=== PATIENT | female | born 1985 | race Hispanic/Latino ===

== ENCOUNTER 2016-11-30 21:20 | Emergency (ER) | payer OTHER ==
[~2016-11-30] VITALS: Ht 160 cm; Wt 113.4 kg
[~2016-11-30 21:20] MED LIST: AUGMENTIN 875 M1 TAB PO; IBUPROFEN800 MG PO
[2016-11-30 21:22] VITALS: BP 129/83
[2016-11-30] MEDS ORDERED: AZITHROMYCIN250 M1 PO (22:07)
--- NOTE | 2016-11-30 22:07 | ED EAR COMPLAINT ---
History of Present Illness General Chief Complaint: Upper Respiratory Sx/Fever Stated Complaint: EARS AND THROAT HURT Source: patient Exam Limitations: no limitations Allergies Coded Allergies: MDX - Acetaminophen (From VICODIN) (GI UPSET 08/30/15) MDX - Diazepam (From VALIUM) (GI UPSET, "BUGS CRAWLING ON ME" 08/30/15) MDX - Hydrocodone (From VICODIN) (GI UPSET 08/30/15) Triage Note: PT TO TRIAGE WITH C/O BILAT EAR INFECTION AND SORE THROAT FOR FEW MONTHS. PT HAS BEEN ON ANTIBIOTICS BUT INFECTION CAME BACK. PT AFEBRILE. VSS. STREP SWABS OBTAINED IN TRIAGE AND SENT TO LAB. Triage Nurses Notes Reviewed? yes : No Patient currently breastfeeds: No HPI: This patient is a 31-year-old female who presented to the emergency department today for evaluation of right sided ear pain and throat pain 2 days. The patient reported that she has had recurrent ear infections and sore throats over the last 2 months. She has been on antibiotics which have helped in the past. Reported that currently her pain is a 10 out of 10. The pain is nonradiating and constant. The throat pain is worse with swallowing. No provoking or palliative factors to the ear pain. The patient denied any fevers or chills. No difficulty breathing or chest pain. (ZACH MITCHELL,SARAY) Vital Signs & Intake/Output Vital Signs & Intake/Output Vital Signs Date Time Temp Pulse Resp B/P Pulse O2 O2 Flow FiO2 Ox Delivery Rate 11/30 2121 96.3 102 18 129/83 97 Room Air ED Intake and Output 12/01 0000 11/30 1200 Intake Total Output Total Balance Patient 250 lb Weight Reconcile Medications AMOXICILLIN/POTASSIUM CLAV (Augmentin 875-125 Tablet) 875 MG/125 MG TAB 1 TAB PO BID BILATERAL EAR INFECTION Azithromycin 250 MG TABLET 1 DP PO AD OTITIS MEDIA AND PHARYNGITIS 2 the first day followed by 1 for days 2-5 Ibuprofen 800 MG TAB 1 TAB PO TID PRN PAIN/FEVER (SALONI MEIER,KWASI Bello) Past History Travel History Traveled to [place] past 21 day No Medical History Any Pertinent Medical History? see below for history EENT: otitis media Respiratory: asthma Surgical History Surgical History: non-contributory Psychosocial History What is your primary language [place]ese Tobacco Use: Current Daily Use Daily Tobacco Use Amount/Type: => 5 Cigarettes daily Family History Hx Contributory? No (SARAY SERRANO PA-C) Review of Systems Review of Systems Constitutional: Reports: no symptoms. EENTM: Reports: see HPI. Respiratory: Reports: no symptoms. Cardiovascular: Reports: no symptoms. GI: Reports: no symptoms. Musculoskeletal: Reports: no symptoms. Skin: Reports: no symptoms. Neurological/Psychological: Reports: no symptoms. All Other Systems: Reviewed and Negative (SARAY SERRANO PA-C) Physical Exam Physical Exam Ears: Bilateral: canal normal, Tympanic red, Tympanic bulging, other (NO PERFORATION BILATERALLY). Comments: Well-developed well-nourished person in no acute distress HEENT: Head normocephalic, moist mucous membranes, pharyngeal injection without any oropharyngeal lesions or edema, no tonsillar exudates, no uvular shift Neck: Supple, no lymphadenopathy Back: Normal gait Respiratory: No respiratory distress. Speaking in full sentences Extremities: No evidence of trauma Neuro: Alert and oriented x3 Psych: Mood affect normal, normal memory normal judgment. Skin: Warm and dry, no rash on exposed skin (SARAY SERRANO PA-C) Progress Differential Diagnoses I considered the following diagnoses in my evaluation of the patient: [Otitis media, otitis externa, mastoiditis, viral syndrome, influenza, strep pharyngitis , peritonsillar abscess, retropharyngeal abscess, meningitis, Jonnie angina] Plan of Care: Orders Procedure Date/time Status THROAT CULTURE W/QUICK STREP 11/30 2126 Active Initial ED EKG: none (SARAY SERRANO PA-C) Departure Departure Disposition: HOME OR SELF CARE Condition: Stable Clinical Impression Primary Impression: Otitis media Qualifiers: Otitis media type: unspecified Laterality: bilateral Chronicity: unspecified Qualified Code: H66.93 - Otitis media, unspecified, bilateral Secondary Impressions: Pharyngitis Qualifiers: Pharyngitis/tonsillitis etiology: unspecified etiology Qualified Code: J02.9 - Acute pharyngitis, unspecified Referrals: UNKNOWN (PCP) Additional Instructions: Take antibiotic for the full duration. Rest and be sure to stay hydrated. Follow-up with your ENT as previously scheduled. Return for any worsening symptoms or concerns. Departure Forms: Customer Survey General Discharge Information Prescriptions: Current Visit Scripts Azithromycin 1 DP PO AD #6 TAB Ref 1 2 the first day followed by 1 for days 2-5 (ZACH MITCHELL,SARAY) PA/HAND PLEATER Co-Sign Statement Statement: ED Attending supervision documentation- [] I saw and evaluated the patient. I have also reviewed all the pertinent lab results and diagnostic results. I agree with the findings and the plan of care as documented in the PA's/HAND PLEATER's documentation. [x] I have reviewed the ED Record and agree with the PA's/HAND PLEATER's documentation. [] Additions or exceptions (if any) to the PAs/HAND PLEATER's note and plan are summarized below: [] (SALONI MEIER,KWASI Bello)
== END 2016-11-30 22:11 ==
LOC: ERH 21:20
DX: H66.91 Otitis media, unspecified, right ear (principal); J02.9 Acute pharyngitis, unspecified
CPT/HCPCS: 87147

== ENCOUNTER 2018-01-14 08:07 | Emergency (ER) | payer OTHER ==
[~2018-01-14] VITALS: Ht 157.5 cm; Wt 113.4 kg
[~2018-01-14 08:07] MED LIST changes: +AZITHROMYCIN250 M1 PO
--- NOTE | 2018-01-14 08:12 | ED DYSPNEA/ASTHMA COMPLAINT ---
History of Present Illness General Chief Complaint: Wheezing/Asthma Stated Complaint: ASTHMA Source: patient, old records Exam Limitations: no limitations Vital Signs & Intake/Output Vital Signs & Intake/Output Vital Signs Date Time Temp Pulse Resp B/P B/P Pulse O2 O2 Flow FiO2 Mean Ox Delivery Rate 01/14 0907 86 20 120/74 99 Room Air Room Air 01/14 0832 99 01/14 0819 98 Room Air Room Air 01/14 0813 96.4 122 26 97 Room Air Allergies Coded Allergies: diazepam (GI UPSET 01/14/18) hydrocodone (GI UPSET 01/14/18) Reconcile Medications Albuterol Sulfate 2.5 MG/3 ML (0.083 %) VIAL.NEB 1 Vial INH/ALVIN Q4P PRN asthma Albuterol Sulfate (Proair Hfa) 90 MCG HFA.AER.AD 2 PUF INH Q4-6 PRN PRN asthma Methylprednisolone. (Medrol) 4 MG TAB.DS.PK 1 DP PO AD asthma 6 on day 1 then reduce by one tablet daily until gone Triage Nurses Notes Reviewed? yes Onset: Abrupt Duration: day(s): (2), constant Timing: recent history Severity: mild Prior Episodes/Possible Cause: occasional episodes Associated Symptoms: cough : No Patient currently breastfeeds: No HPI: 32-year-old female active smoker presents to the ER for evaluation playing or shortness of breath wheezing which she attributes to her asthma since last night. She used her albuterol inhaler with only temporary relief. The patient states that she has a nebulizer machine but ran out of the medication. She reports a nonproductive cough no fever no chills no nausea vomiting diarrhea. She denies any leg swelling or chest pain. she reports to similar episodes every year at this time. (Casper Mcdonald) Past History Travel History Traveled to [place] past 21 day No Medical History Any Pertinent Medical History? see below for history EENT: otitis media Respiratory: asthma Surgical History Surgical History: non-contributory Psychosocial History What is your primary language Irish Tobacco Use: Current Daily Use Daily Tobacco Use Amount/Type: => 5 Cigarettes daily Family History Hx Contributory? No (Casper Mcdonald) Review of Systems Review of Systems Constitutional: Reports: see HPI. Comments Review of systems: See HPI, All other systems negative. Constitutional, no chills no fever HEENT: no sore throat no congestion Cardiovascular: No chest pain Skin: no rashes, no change in skin Respiratory: see hpi GI: No nausea no vomiting, no diarrhea Muscle skeletal: no back pain Neurologic: , no headache Heme/endocrine: No bruising (Casper Mcdonald) Physical Exam Physical Exam General Appearance: well developed/nourished, alert, awake, comfortable Respiratory: wheezing Comments: Well-developed well-nourished patient in no apparent distress. HEENT: Atraumatic, extraocular motion intact pharynx is normal no erythema Neck: Supple, FROM Back: FROM Cardiovascular: Regular rate and rhythms no murmurs rubs or gallops, Respiratory: Chest nontender.There were no bony deformities, no asymmetry. No respiratory distress. Patient speaking in full complete sentences. Intermittent expiratory wheezes no rhonchi no rales Extremities: full range of motion Neuro: awake, alert, and oriented to person, place and time. There were no obvious focal neurologic abnormalities. Skin: Warm & dry;No appreciable rash on exposed skin Psych: Mood affect normal, normal memory normal judgment. Core Measures ACS in differential dx? No CVA/TIA Diagnosis No Sepsis Present: No Sepsis Focused Exam Completed? No (Casper Mcdonald) Progress Differential Diagnosis: asthma, bronchitis, pneumonia Plan of Care: Current Medications Sig/Stacey Start time Last Medication Dose Stop Time Status Admin Albuterol Sulfate 3 ML ONCE ONE 01/14 830 AC (Proventil) 01/14 831 Ipratropium [place] 2.5 ML ONCE ONE 01/14 830 AC (Atrovent) 01/14 831 Prednisone 60 MG ONCE ONE 01/14 830 AC 01/14 831 Breathing treatment and prednisone 60 mg by mouth ordered. Full complete sentences without respiratory distress at this time with smoking cessation discussed with patient. 900 am patient feeling significantly improved noted improvement resolution of wheezing. Patient is declining second breathing treatment states she feels improved and would like to go home but discussed with her return precautions she feels comfortable plan return caution's were discussed at length we will send her home with pro-air of urinary nebulizer and prednisone she feels comfortable with plan Initial ED EKG: none (Casper Mcdonald) Departure Departure Time of Disposition: 902 Disposition: HOME OR SELF CARE Condition: Stable Clinical Impression Primary Impression: Asthma exacerbation Referrals: Unknown Additional Instructions: Take medrol dose prachi as directed. albuterol inhaler and nebulizer as directed. Follow up with your pmd, return to the ER with any concerns. Departure Forms: Customer Survey General Discharge Information Prescriptions: Current Visit Scripts Albuterol Sulfate 1 Vial INH/ALVIN Q4P PRN asthma #50 Vial Albuterol Sulfate (Proair Hfa) 2 PUF INH Q4-6 PRN PRN asthma #1 INHAL Methylprednisolone. (Medrol) 1 DP PO AD #1 DP 6 on day 1 then reduce by one tablet daily until gone (Casper Mcdonald) PA/MATHEMATICS INSTRUCTOR Co-Sign Statement Statement: ED Attending supervision documentation- [] I saw and evaluated the patient. I have also reviewed all the pertinent lab results and diagnostic results. I agree with the findings and the plan of care as documented in the PA's/MATHEMATICS INSTRUCTOR's documentation. [X] I have reviewed the ED Record and agree with the PA's/MATHEMATICS INSTRUCTOR's documentation. [] Additions or exceptions (if any) to the PAs/MATHEMATICS INSTRUCTOR's note and plan are summarized below: [] (Gavin MEIER,Herman Sanchez) Critical Care Note Critical Care Note Critical Care Time: non-applicable (Casper Mcdonald)
[2018-01-14] MEDS ORDERED: MEDROL4 M2 PO (09:04)
[2018-01-14] MEDS ORDERED: PROAIR HFA8.5 GM INH (09:04)
[2018-01-14] MEDS ORDERED: ALBUTEROL2.5 MG/3 M INH/SOL (09:04)
[2018-01-14 09:07] VITALS: BP 120/74
== END 2018-01-14 09:10 ==
LOC: ERH 08:07
DX: J45.901 Unspecified asthma with (acute) exacerbation (principal); F17.210 Nicotine dependence, cigarettes, uncomplicated
CPT/HCPCS: 1263

== ENCOUNTER 2018-05-15 01:40 | Emergency (ER) | payer OTHER ==
[~2018-05-15] VITALS: Ht 157.5 cm; Wt 112.0 kg
[~2018-05-15 01:40] MED LIST changes: +ALBUTEROL2.5 MG/3 M INH/SOL; +MEDROL4 M2 PO; +PROAIR HFA8.5 GM INH
[2018-05-15 01:54] VITALS: BP 130/76
--- NOTE | 2018-05-15 02:14 | ED GENERAL ADULT ---
History of Present Illness General Chief Complaint: Ear Complaints Stated Complaint: PT C/O BILAT EAR PAIN Source: patient Exam Limitations: no limitations Vital Signs & Intake/Output Vital Signs & Intake/Output Vital Signs Date Time Temp Pulse Resp B/P B/P Pulse O2 O2 Flow FiO2 Mean Ox Delivery Rate 05/15 0221 Room Air 05/15 0154 98.1 85 20 130/76 97 Room Air Allergies Coded Allergies: diazepam (GI UPSET 01/14/18) hydrocodone (GI UPSET 01/14/18) Reconcile Medications Albuterol Sulfate 2.5 MG/3 ML (0.083 %) VIAL.NEB 1 Vial INH/ALVIN Q4P PRN asthma Albuterol Sulfate (Proair Hfa) 90 MCG HFA.AER.AD 2 PUF INH Q4-6 PRN PRN asthma Amoxicillin/Potassium Clav (Augmentin 875-125 Tablet) 875 MG-125 MG TABLET 1 TAB PO BID EAR INFECTION Ibuprofen 600 MG TABLET 1 TAB PO TID PRN PAIN with food Methylprednisolone. (Medrol) 4 MG TAB.DS.PK 1 DP PO AD asthma 6 on day 1 then reduce by one tablet daily until gone Triage Note: PT HERE WITH C/O BILATERAL EAR PAIN. PT REPORTS THAT SHE HAS TUBES IN BOTH EARS AND "FROM TIME TO TIME THEY GET BACKED UP". PT REPORTS THAT THE PAIN IS GOING DOWN INTO HER THROAT. Triage Nurses Notes Reviewed? yes Onset: Gradual Duration: day(s): Timing: recent history Injury Environment: street : No Patient currently breastfeeds: No HPI: 33 YO WOMAN h/o bilateral PE tubes with 1 day of bilateral ear pain. "I think it's an infection... I feel pressure in both my ears" for the past 2-3 days. She notes no fever, dyspnea. She is otherwise well. Past History Travel History Traveled to [place] past 21 day No Medical History Any Pertinent Medical History? see below for history EENT: otitis media Respiratory: asthma Surgical History Surgical History: non-contributory Psychosocial History What is your primary language Icelandic Tobacco Use: Never used ETOH Use: denies use Illicit Drug Use: denies illicit drug use Family History Hx Contributory? No Review of Systems Review of Systems Constitutional: Reports: no symptoms. EENTM: Reports: no symptoms. Respiratory: Reports: no symptoms. Cardiovascular: Reports: no symptoms. GI: Reports: no symptoms. Genitourinary: Reports: no symptoms. Musculoskeletal: Reports: no symptoms. Skin: Reports: no symptoms. Neurological/Psychological: Reports: no symptoms. Hematologic/Endocrine: Reports: no symptoms. Immunologic/Allergic: Reports: no symptoms. All Other Systems: Reviewed and Negative Physical Exam Physical Exam General Appearance: well developed/nourished, no apparent distress Head: atraumatic, normal appearance Eyes: Bilateral: normal appearance, PERRL, EOMI. Ears, Nose, Throat: normal pharynx, normal ENT inspection Neck: normal inspection, supple, full range of motion Respiratory: normal breath sounds Gastrointestinal: normal bowel sounds, soft, non-tender Rectal: normal exam, normal rectal tone Back: normal inspection, normal range of motion Extremities: normal capillary refill Neurologic/Psych: no motor/sensory deficits, awake, alert, oriented x 3 Core Measures ACS in differential dx? No CVA/TIA Diagnosis: No Sepsis Present: No Sepsis Focused Exam Completed? No Progress Differential Diagnoses I considered the following diagnoses in my evaluation of the patient: Plan of Care: pt given augmentin and counseled to follow up with ENT next week. Initial ED EKG: none Departure Departure Disposition: HOME OR SELF CARE Condition: Stable Clinical Impression Primary Impression: Otitis media Referrals: Patient Has No Primary Care Dr (PCP/Family) Departure Forms: Customer Survey General Discharge Information Prescriptions: Current Visit Scripts Amoxicillin/Potassium Clav (Augmentin 875-125 Tablet) 1 TAB PO BID #20 TAB Ibuprofen 1 TAB PO TID PRN PAIN #30 TAB with food Comments pt given augmentin for his inflamed tonsils... close follow up advised. Critical Care Note Critical Care Note Critical Care Time: non-applicable Comments: PATIENT: ÁNGELA BACK PRESENT AGE: 77 PATIENT ACCOUNT NO: [id number] : [birth year] LOCATION: [facility] ORDERING PHYSICIAN: Nessa PRETTY SERVICE DATE: 05/14/18 EXAM TYPE: RAD - XRY-CHEST XRAY, TWO VIEWS EXAMINATION: XR CHEST CLINICAL INFORMATION: Dizziness. Rule out cardiopulmonary process. COMPARISON: None TECHNIQUE: 2 views of the chest were obtained. FINDINGS: The cardiomediastinal silhouette is within normal limits in size. Calcification of the aortic arch is seen. Lungs bilaterally are symmetrically mildly hyperinflated and demonstrate mild bibasilar linear reticular atelectasis. No focal consolidation, effusion or pneumothorax is seen. Bony structures are unremarkable. IMPRESSION: Findings are suggestive of obstructive lung disease with mild bibasilar subsegmental atelectasis. Close clinical correlation is requested. No focal pneumonia. DICTATED BY: Ju Ferrara MD DATE/TIME DICTATED:05/14/181550 PRINCIPAL HARDWARE ARCHITECT:ANDREI DATE/TIME TRANSCRIBED:05/14/181550 CONFIDENTIAL, DO NOT COPY WITHOUT APPROPRIATE AUTHORIZATION. <Electronically signed in Other Vendor System> SIGNED BY: Ju Ferrara MD [id number]
[2018-05-15] MEDS ORDERED: IBUPROFEN600 M1 PO (02:20)
[2018-05-15] MEDS ORDERED: AUGMENTIN 875-1 EACH PO (02:20)
== END 2018-05-15 02:31 ==
LOC: ERH 01:40
DX: H66.93 Otitis media, unspecified, bilateral (principal)